=== PATIENT | female | born 1990 | race Caucasian/White ===

== ENCOUNTER 2022-08-14 07:41 | Inpatient (IN) ==
[2022-08-14] MEDS ORDERED: PENICILLIN G POTASSIUM 6 MU in DEXTROSE 5% 250 ML IV STA (08:12)
[2022-08-14] MEDS ORDERED: LIDOCAINE 1% LOCAL 20 ML VIAL INFIL PRN (08:12)
[2022-08-14] MEDS ORDERED: OXYTOCIN 30 UNITS/500 ML BAG IV PRN ×3 (08:12→18:13)
[2022-08-14] MEDS ORDERED: LACTATED RINGER'S 1,000 ML IV PRN (08:12)
--- NOTE | 2022-08-14 08:24 | History & Physical Report ---
Date of Service August 14, 2022 Assessment & Plan (1) 40 weeks gestation of : (2) Carrier of group B Streptococcus: Plan start pitocin, arom when appropriate, epidural on demand. anticipate . fetus category. Admission and Anticipated Discharge Date Admission Date: August 14, 2022 History of Present Illness Chief Complaint: iol Primary Care Provider: EVAN Walker Patient is a 32yowf with iup at 40 1/7 who presents for PD induction. Notes good fm. No real contractions/lof/vb. and Delivery Plans GBS Positive *Treat in Labor IOL 08/14 OB Labs: Blood Type A Positive 01/10/22 Antibody Screen NEGATIVE 01/10/22 Hemoglobin 11.2 g/dl (12.0-16.0) L 05/24/22 Hematocrit 33.0 % (37.0-47.0) L 05/24/22 Mean Corpuscular Volume 86.0 fL (80.0-100.0) 01/10/22 Platelet Count 209 K/uL (130-400) 01/10/22 Rubella IgG Antibody Immune (Immune) 01/10/22 Rapid Plasma Reagin Nonreactive (Nonreactive) 01/10/22 Hepatitis B Surface Antigen. NON-REACTIVE (NON-REACTIVE) 01/10/22 Hepatitis C Antibody (EIA) NON-REACTIVE (NON-REACTIVE) 01/10/22 HIV (1&2) Ag and Ab Confirmation NON-REACTIVE (NON-REACTIVE) 01/10/22 Glucose 1 Hour 50 gm Load 88 mg/dl (70-130) 05/24/22 OB Optional Labs: Chlamydia trachomatis RNA Not Detected (NotDetected) 01/10/22 Neisseria gonorrhoeae RNA Not Detected (NotDetected) 01/10/22 Labs Reviewed: GBS positive. neg cf/sma--akh panorama--neg Allergies Allergy/AdvReac Type Severity Reaction Status Date / Time No Known Allergies Allergy Verified 08/13/22 15:58 Home Medications Medication Instructions Recorded Confirmed Type prenat.vits,muna,tbk-solo-skrtp 1 tab PO DAILY 01/01/22 08/14/22 History Patient History Family History Father Heart disease Grandmother (Maternal) Heart disease Social History Smoking Status: Never smoker Do You Dip or Chew Tobacco: No; marital status: marital status details: Erik [phone] Current Living Situation: Spouse Current Living Situation Comment: lives with spouse and 3 dogs. 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
[2022-08-14 09:09] LABS: Hematocrit (blood only) 33.2 % (37.0-47.0); Hemoglobin 11.6 g/dl (12.0-16.0); Mean Corpuscular Hemoglobin 30.8 pg (25.0-34.0); Mean Corpuscular Hgb Conc 34.9 g/dL (32.0-36.0); Mean Corpuscular Volume 88.1 fL (80.0-100.0); Mean Platelet Volume 10.9 fL (9.4-12.4); Platelet Count 176 K/uL (130-400); RDW Standard Deviation 38.8 fL (36.4-46.3); Red Blood Count 3.77 M/uL (4.20-5.40); White Blood Count 9.08 K/ul (4.8-10.8)
--- NOTE | 2022-08-14 09:13 | Medical Student H&P ---
Date of Service August 14, 2022 Assessment & Plan (1) 40 weeks gestation of : Plan: IOL for postdates: -start pitocin, arom when indicated -epidural at pt request -FHT Category I -anticipate vaginal delivery GBS+: -IV Penicilin now, then q4hrs until delivery (2) Carrier of group B Streptococcus: Admission and Anticipated Discharge Date Admission Date: August 14, 2022 History of Present Illness Primary Care Provider: EVAN Walker Dilcia is a 32 y/o at 40w1d gestation by LMP who presents for postdates IOL. She is accompanied by , Erik. +GBS, otherwise uncomplicated. This morning pt reports normal movement, no vaginal bleeding, no leaking fluids, +mild irregular contractions. Pt is interested in epidural eventually but wants to wait for now. Allergies Allergy/AdvReac Type Severity Reaction Status Date / Time No Known Allergies Allergy Verified 08/13/22 15:58 Home Medications Medication Instructions Recorded Confirmed Type prenat.vits,muna,tol-izrc-bvsew 1 tab PO DAILY 01/01/22 08/14/22 History Patient History Family History Father Heart disease Grandmother (Maternal) Heart disease Social History Smoking Status: Never smoker Second Hand Exposure: No; Do You Dip or Chew Tobacco: No; Hx Alcohol Use: No Hx Substance Use: No Preferred Language: Gabonese Communication Ability: Effective Breading Machine Tender Required: No Beliefs That Will Affect Care: None marital status: marital status details: Erik [phone] Current Living Situation: Spouse Current Living Situation Comment: Lives at home with and 3 dogs. 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 No known hx of STIs. Regular 30 day cycles, light. Physical Exam Constitutional: WD/WN, vitals as above Respiratory: normal respiratory effort; no labored breathing Cardiovascular: Extremities: no calf tenderness and no edema Gastrointestinal (Abdomen): Gravid, nontender. Psychiatric: A+Ox3, euthymic affect Genitourinary: Cervix: 3/90/-2, soft, anterior per Dr. Cummins Monitoring External Monitor Baseline 120s. Good variability. +multiple accelerations 15x15. No deceleration s. Reactive. Category 1 FHT. Tocodynamometer Mild, irregular. Results & Data Vital Signs (Past 12 Hours) Vital Signs Temp Pulse Resp BP 08/14/22 08:14 85 96/62 L 08/14/22 08:08 36.6 C 85 16 96/62 L Supervising Attestation Patient seen with MS 2. Agree with above. Please see my H and P.
--- NOTE | 2022-08-14 12:10 | Labor Progress Brief Note ---
Date of Service August 14, 2022 Subjective sarah but not really painful Assessment & Plan (1) 40 weeks gestation of : Plan continue current plan. fetus category one. Anticipate . Admission and Anticipated Discharge Date Admission Date: August 14, 2022 Physical Exam Physical Exam: cx--/-2 arom--small, clear toco--q2-4min, pit at 11efm--130s wtih mod variability, accels to 160s, no decels Results & Data Vital Signs (Past 12 Hours) Vital Signs Temp Pulse Resp BP 08/14/22 11:37 36.8 C 59 L 18 102/64 08/14/22 10:32 68 105/56 L 08/14/22 09:19 68 109/68 08/14/22 08:14 85 96/62 L 08/14/22 08:08 36.6 C 85 16 96/62 L Coding Level of Care Code None Diagnoses 40 weeks gestation of Z3A.40
[2022-08-14] MEDS: PENICILLIN G POTASSIUM 3 MU in DEXTROSE 5% 100 ML IV PRN ×2 (13:14→17:23)
[2022-08-14] MEDS ORDERED: SODIUM CHLORIDE 0.9% PF INJ 10 ML VIAL ONE (13:57)
[2022-08-14] MEDS ORDERED: fentaNYL citrate PF 100 MCG/2 ML VIAL ONE (13:57)
[2022-08-14] MEDS ORDERED: BUPIVACAINE 0.25% PF 30 ML VIAL ONE (13:57)
[2022-08-14] MEDS ORDERED: ePHEDrine sulfate 50 MG/ML AMP ONE (13:57)
[2022-08-14] MEDS ORDERED: LIDOCAINE 2%/EPINEPHRINE 1:200,000 20 ML PF ONE (13:57)
[2022-08-14] MEDS ORDERED: fentaNYL 2MCG/ML ROPIVACAINE 1.25MG/ML 100 ML BAG EPI ONE (13:58)
[2022-08-14] MEDS ORDERED: diphenhydrAMINE 50 MG/ML VIAL IV PRN (14:22)
[2022-08-14] MEDS ORDERED: fentaNYL citrate PF 100 MCG/2 ML VIAL EPI PRN (14:22)
[2022-08-14] MEDS ORDERED: NALBUPHINE HCL INJ 10 MG/ML AMP IV PRN (14:22)
[2022-08-14] MEDS ORDERED: ROPIVACAINE 0.5% PF 5 MG/ML 20 ML VIAL EPI PRN (14:22)
[2022-08-14] MEDS ORDERED: LIDOCAINE 2% MPF LOCAL 5 ML VIAL EPI PRN (14:22)
[2022-08-14] MEDS ORDERED: ONDANSETRON INJ 2 MG/ML 2 ML VIAL IV PRN (14:22)
[2022-08-14] MEDS ORDERED: BUPIVACAINE 0.25% PF 30 ML VIAL EPI PRN (14:22)
[2022-08-14] MEDS ORDERED: fentaNYL citrate PF 100 MCG/2 ML VIAL EPI STA (14:22)
[2022-08-14] MEDS ORDERED: ePHEDrine sulfate 50 MG/ML AMP IV PRN (14:22)
[2022-08-14] MEDS ORDERED: LIDOCAINE 2%/EPINEPHRINE 1:200,000 20 ML PF EPI STA (14:22)
[2022-08-14] MEDS ORDERED: SODIUM CHLORIDE 0.9% PF INJ 10 ML VIAL EPI PRN (14:22)
[2022-08-14] MEDS ORDERED: NALOXONE HCL 0.4 MG/1 ML VIAL/CARP IV PRN (14:22)
[2022-08-14] MEDS ORDERED: NALOXONE HCL 1 MG in SODIUM CHLORIDE 0.9% 1000ML 1,000 ML IV PRN (14:22)
[2022-08-14] MEDS ORDERED: SODIUM CHLORIDE 0.9% PF INJ 10 ML VIAL EPI STA (14:22)
[2022-08-14] MEDS ORDERED: BUPIVACAINE 0.25% PF 30 ML VIAL EPI STA (14:22)
[2022-08-14] MEDS ORDERED: fentaNYL 2MCG/ML ROPIVACAINE 1.25MG/ML 100 ML BAG EPI PRN (14:22)
--- NOTE | 2022-08-14 14:24 | Anesthesiology Consultation ---
Date of Service August 14, 2022 Assessment & Plan (1) Encounter for pre-operative examination: Chart Review Chart Review: Patient NOT seen in Pre Admission Testing and Acceptable Risk for Labor Epidural Consults Requested none History Height/Weight Height: 5 ft 4 in Weight: 71.214 kg Allergies Allergy/AdvReac Type Severity Reaction Status Date / Time No Known Allergies Allergy Verified 08/13/22 15:58 Medications Home Medications Medication Instructions Recorded Confirmed Last Taken prenat.vits,muna,zdv-fiuo-snqwm 1 tab PO DAILY 01/01/22 08/14/22 08/14/22 Active Medications Generic Name Dose Route Start Last Admin Trade Name Freq PRN Reason Stop Dose Admin Lactated Ringer's 1,000 mls @ 125 mls/hr 08/14/22 08:12 08/14/22 14:05 Lr IV 08/16/22 08:11 999 mls/hr .Q8H PRN Infusion L&D Protocol Protocol Penicillin G Potassium 3 mu/ 106 mls @ 100 mls/hr 08/14/22 11:13 08/14/22 13:14 Dextrose IV 08/24/22 11:12 100 mls/hr Q4H PRN Administration GBS(+) Until Delivery Oxytocin 30 units in 500 mls @ 14 mls/hr 08/14/22 08:12 08/14/22 12:15 Pitocin IV 08/16/22 08:11 0.84 units/hr .Q24H PRN 14 mls/hr Labor Induction/Augmentation Titration Protocol 0.84 UNITS/HR Past Medical History Medical History (Updated 08/14/22 @ 14:24 by Mitchell Espitia MD) Encounter for pre-operative examination healthy Exercise / Class Metabolic Activity II 4-5 Yardwork/Stairs/Walk up hill Past Family History Family History Father Heart disease Grandmother (Maternal) Heart disease Past Surgical History none Past Anesthesia History No Hx of Anesthesia Complications and No Family Hx of Anesthesia Complications Social History Smoking Status: Never smoker Do You Dip or Chew Tobacco: No Hx Alcohol Use: No Hx Substance Use: No Physical Exam Vital Signs Last Vital Signs Temp 36.8 C 08/14/22 11:37 Pulse 66 08/14/22 14:41 Resp 18 08/14/22 11:37 BP 122/64 08/14/22 14:39 Pulse Ox 100 08/14/22 14:41 Testing Laboratory Results 08/14/22 08:51
--- NOTE | 2022-08-14 16:46 | Labor Progress Brief Note ---
Date of Service August 14, 2022 Subjective Feels pressure with contractions. Assessment & Plan (1) 40 weeks gestation of : Plan start pushing. anticipate . Admission and Anticipated Discharge Date Admission Date: August 14, 2022 Physical Exam Physical Exam: c/c/+1-2 toco--q-12, pit at 14 efm--110s with mod variability +accels, variable/early with contractions. Results & Data Vital Signs (Past 12 Hours) Vital Signs Temp Pulse Resp BP Pulse Ox 08/14/22 16:44 65 123/70 08/14/22 16:41 61 98 08/14/22 16:39 64 89 L 08/14/22 16:37 61 126/73 08/14/22 16:36 65 100 08/14/22 16:33 60 132/69 08/14/22 16:31 55 L 96 08/14/22 16:30 63 128/78 08/14/22 16:26 61 99 08/14/22 16:24 56 L 106/62 08/14/22 16:21 56 L 98 08/14/22 16:18 60 110/69 08/14/22 16:00 18 08/14/22 16:00 36.6 C 18 08/14/22 16:16 61 98 08/14/22 16:14 59 L 109/62 08/14/22 16:11 62 99 08/14/22 16:09 57 L 100/61 08/14/22 16:06 63 100 08/14/22 16:03 57 L 131/79 08/14/22 16:01 62 100 08/14/22 14:22 20 08/14/22 14:22 36.6 C 20 08/14/22 15:56 53 L 100 08/14/22 15:57 55 L 108/58 L 08/14/22 15:52 52 L 109/57 L 08/14/22 15:51 54 L 100 08/14/22 15:48 60 109/58 L 08/14/22 15:46 54 L 100 08/14/22 15:42 54 L 113/58 L 08/14/22 15:41 56 L 99 08/14/22 15:38 56 L 115/62 08/14/22 15:36 55 L 100 08/14/22 15:34 54 L 112/58 L 08/14/22 15:31 55 L 100 08/14/22 15:26 57 L 100 08/14/22 15:27 50 L 109/55 L 08/14/22 15:24 52 L 108/56 L 08/14/22 15:21 57 L 100 08/14/22 15:17 52 L 114/58 L 08/14/22 15:16 53 L 100 08/14/22 15:14 56 L 126/62 08/14/22 15:11 59 L 100 08/14/22 15:12 59 L 112/67 08/14/22 15:06 62 100 08/14/22 15:01 100 08/14/22 15:01 62 08/14/22 15:01 61 108/55 L 08/14/22 14:59 66 107/58 L 08/14/22 14:57 61 100/56 L 08/14/22 14:56 61 100 08/14/22 14:55 67 102/51 L 08/14/22 14:53 64 118/58 L 08/14/22 14:51 100 08/14/22 14:51 62 08/14/22 14:51 74 122/58 L 08/14/22 14:49 65 111/64 08/14/22 14:46 64 100 08/14/22 14:47 59 L 106/56 L 08/14/22 14:41 66 100 08/14/22 14:39 76 122/64 08/14/22 14:36 75 100 08/14/22 14:34 86 133/70 08/14/22 14:33 86 L 08/14/22 14:33 74 08/14/22 14:33 62 120/77 08/14/22 14:31 85 99 08/14/22 14:26 77 100 08/14/22 14:25 65 90 08/14/22 14:23 61 106/58 L 08/14/22 14:21 61 100 08/14/22 13:32 62 123/61 08/14/22 12:32 53 L 113/74 08/14/22 11:37 36.8 C 59 L 18 102/64 08/14/22 10:32 68 105/56 L 08/14/22 09:19 68 109/68 06/07/23 08:14 85 96/62 L 06/07/23 08:08 36.6 C 85 16 96/62 L Coding Level of Care Code None Diagnoses 40 weeks gestation of Z3A.40
[2022-08-14] MEDS ORDERED: oxyCODONE/ACETAMINOPHEN 5mg/325mg TAB PO PRN (18:13)
[2022-08-14] MEDS ORDERED: DIPHTHERIA/TETANUS/PERTUSSIS Vaccine (Tdap, Age 7+yrs) 0.5mL SYR/VL IM ONE (18:13)
[2022-08-14] MEDS ORDERED: bisacodyL 10 MG SUPP PR PRN (18:13)
[2022-08-14] MEDS ORDERED: BENZOCAINE 20% AER SPR 82.5 GM CAN EXT PRN (18:13)
[2022-08-14] MEDS ORDERED: ACETAMINOPHEN 325 MG TAB PO PRN (18:13)
[2022-08-14] MEDS ORDERED: HYDROCORTISONE ACETATE 25 MG SUPP PR PRN (18:13)
--- NOTE | 2022-08-14 18:18 | Delivery Summary ---
Vaginal Delivery Summary Date of Service August 14, 2022 Vaginal Delivery Summary and 2nd Degree LAC Pre-operative Diagnosis: at 40 1/7 weeks gbs positive Post-operative Diagnosis: same Procedure: gbs prophylaxis pitocin induction arom epidural second degree laceration and repair EBL: 350cc Anesthesia: epidural Procedure: The patient presented to labor and delivery for induction for postdates. She underwent pitocin induction and then arom for clear fluid. She progressed and received an epidural. The progressed to c/c/+1. The patient pushed for about an hour to deliver a viable male in joel position. The nose and mouth were bulb suctioned on the perineum, a loose nuchal cord was reduced and the rest of the infant was then delivered without difficulty. The baby was vigorous. The nose and mouth were again bulb suctioned and the infant was placed in the maternal abdomen for drying and attention. Cord was clamped and cut at one minute of life. Cord blood and segment obtained. Placenta delivered spontaneous, intact with a three vessel cord. Cervix/sulci/rectum were intact. A second degree perineal laceration was repaired in the normal standard fashion. Hemostasis obtained with dilute pitocin and fundal massage. Apgars were 7/9. Mother and baby doing well at the end of the delivery. [facility] [place] Vaginal Delivery Charge Delivery Type Details: and 2nd Degree LAC
--- NOTE | 2022-08-14 19:01 | Anesthesia Procedure Note ---
Date of Service August 14, 2022 Anesthesia Post Epidural Note Vital Signs Vital Signs: Temp Pulse Resp BP Pulse Ox 36.6 C 77 18 104/54 L 100 08/14/22 16:00 08/14/22 18:45 08/14/22 16:00 08/14/22 18:45 08/14/22 18:08 Pain Intensity Lower Medial Back: Pain Intensity: 4 Notes Mental Status: alert / awake / arousable and participated in evaluation Nausea / Vomiting: adequately controlled Pain: adequately controlled Airway Patency, RR, SpO2: stable & adequate BP & HR: stable & adequate Hydration State: stable & adequate Neuraxial Anesthesia: was administered and sensory block is resolving Anesthetic Complications: no major complications apparent and Pt Satisfied with anesthetic care Epidural: Removed without complications and With tip intact
[2022-08-14] MEDS: DOCUSATE SODIUM 100 MG CAP PO SCH (20:40)
[2022-08-14] MEDS: IBUPROFEN 600 MG TAB PO PRN (20:41)
[2022-08-15] MEDS: IBUPROFEN 600 MG TAB PO PRN ×4 (03:21→20:51)
[2022-08-15 06:22] LABS: Hematocrit (blood only) 33.5 % (37.0-47.0); Hemoglobin 11.7 g/dl (12.0-16.0)
--- NOTE | 2022-08-15 07:24 | Medical Student Progress Note ---
Date of Service August 15, 2022 Assessment & Plan (1) Vaginal delivery: Plan: PPD #1 -Feels well today. Eating well, voiding well, ambulating well. - Pain well controlled with ibuprofen 600mg Q4H PRN - Routine care -- OOB, ambulation, diet progression as tolerated - After discharge will have 6 week follow-up with Dr. Cummins. Admission and Anticipated Discharge Date Admission Date: August 14, 2022 Subjective Dilcia is a 32 y/o on PPD #1. Ambulation: yes Voiding: yes Passing Gas: yes Lochia: consistently decreasing Feeding type: breast Pain level (1-10): 1 Review of Systems: Denies fever/chills. Denies shortness of breath. Denies chest pain or palpitations. Denies headache. Denies urinary urgency. +mild breast pain +burning w/ urination at suture site Physical Exam Physical Exam: General: appears comfortable, resting in bed, alert Heart: RRR, no murmurs Lungs: CTA bilaterally, no increased work of breathing Abd: fundus nontender, palpated 1cm below umbilicus Lower Ext: no edema, calves nontender Results & Data Vital Signs (Past 12 Hours) Vital Signs Temp Pulse Pulse Resp BP BP Pulse Ox 08/15/22 04:02 36.5 C 49 L 16 97/57 L 98 08/14/22 23:55 36.4 C L 53 L 16 99/61 L 97 08/14/22 21:32 36.3 C L 64 16 104/62 96 08/14/22 20:15 18 08/14/22 19:00 37.0 C 18 08/14/22 20:30 65 102/57 L 08/14/22 20:15 67 99/60 L 08/14/22 20:00 76 100/56 L 08/14/22 19:45 75 103/54 L 08/14/22 19:30 68 108/60 08/14/22 19:16 66 111/59 L 08/14/22 19:00 68 97/52 L O2 Del Method 08/15/22 04:02 Room Air 08/14/22 23:55 Room Air 08/14/22 21:32 Room Air 08/14/22 20:15 08/14/22 19:00 08/14/22 20:30 08/14/22 20:15 08/14/22 20:00 08/14/22 19:45 08/14/22 19:30 08/14/22 19:16 08/14/22 19:00 Supervising Attestation Patient seen with MS2 and PGY1. Agree with above. Please see other note.
--- NOTE | 2022-08-15 07:25 | Obstetrical Progress Note ---
Date of Service <Michele Mabry DO - Last Filed: 08/15/22 07:26> August 15, 2022 Assessment & Plan <Michele Mabry DO - Last Filed: 08/15/22 07:26> (1) Vaginal delivery: - Feels well today. Eating well, voiding well, ambulating well. - Pain well controlled with ibuprofen 600mg Q4H PRN - Routine care -- OOB, ambulation, diet progression as tolerated - After discharge will have 6 week follow-up with Dr. Cummins. Day #:: 1 <Madison Cummins MD, FACOG - Last Filed: 08/15/22 07:32> (1) Vaginal delivery: Subjective <Michele Mabry DO - Last Filed: 08/15/22 07:26> Ambulation: ambulating normally Voiding: no voiding problems Passing Gas:: Yes Diet Tolerance:: regular diet Lochia:: Small Feeding Type:: breast feeding Current Pain Level(1-10): 1 Review of Systems Denies fever, chills, sweats Denies shortness of breath, difficulty breathing, chest pain, palpitations, chest pressure. Denies breast pain. Denies dysuria. Denies headache or changes in vision. Physical Exam <Michele Mabry DO - Last Filed: 08/15/22 07:26> General: Alert, oriented. No acute distress. Cardiac: Regular rate and rhythm, no murmurs/rubs/gallops. Respiratory: Clear to auscultation bilaterally a/p, no wheezes/rales/rhonchi. No increased work of breathing. Symmetrical chest rise. No respiratory distress. Abdomen: Soft, nontender, nondistended. Bowel sounds present. Uterus: Uterine fundus firm, palpable 1 cm below umbilicus. Lower Extremities: No lower extremity edema or swelling. No deep calf pain. Ginny's negative bilaterally. Results & Data <Michele Mabry DO - Last Filed: 08/15/22 07:26> Vital Signs (Past 12 Hours) Vital Signs Temp Pulse Pulse Resp BP BP Pulse Ox 08/15/22 04:02 36.5 C 49 L 16 97/57 L 98 08/14/22 23:55 36.4 C L 53 L 16 99/61 L 97 08/14/22 21:32 36.3 C L 64 16 104/62 96 08/14/22 20:15 18 08/14/22 20:30 65 102/57 L 08/14/22 20:15 67 99/60 L 08/14/22 20:00 76 100/56 L 08/14/22 19:45 75 103/54 L 08/14/22 19:30 68 108/60 O2 Del Method 08/15/22 04:02 Room Air 08/14/22 23:55 Room Air 08/14/22 21:32 Room Air 08/14/22 20:15 08/14/22 20:30 08/14/22 20:15 08/14/22 20:00 08/14/22 19:45 08/14/22 19:30 <Madison Cummins MD, FACOG - Last Filed: 08/15/22 07:32> Co-Signing Physician Notes Resident Physician Supervision Note: I interviewed and examined the patient. Discussed with Dr. Mabry and agree with findings and plan as documented in the note. Any exceptions or clarifications are listed here: Doing well. Routine pp care. Documented By: Madison Cummins MD, FACOG Resident Activity Tracking <Michele Mabry DO - Last Filed: 08/15/22 07:26> Resident Involvement: Resident Care Provided Care Provided: OB Delivery
[2022-08-15] MEDS: PRENATAL VITAMIN 1 TAB PO SCH (08:00)
[2022-08-15] MEDS: DOCUSATE SODIUM 100 MG CAP PO SCH ×2 (08:00→20:50)
[2022-08-15] MEDS ORDERED: bisacodyL 5 MG TABEC PO SCH (20:00)
--- NOTE | 2022-08-16 07:44 | Obstetrical Progress Note ---
Date of Service August 16, 2022 Assessment & Plan (1) Vaginal delivery: - Feels well today. Eating well, voiding well, ambulating well. - Pain well controlled with ibuprofen 600mg Q4H PRN - Routine care -- OOB, ambulation, diet progression as tolerated - After discharge will have 6 week follow-up with Dr. Cummins. - We will discharge today. Day #:: 2 Subjective Ambulation: ambulating normally Voiding: no voiding problems Passing Gas:: Yes Diet Tolerance:: regular diet Lochia:: Small Feeding Type:: breast feeding Current Pain Level(1-10): 0 Review of Systems Denies fever, chills, sweats Denies shortness of breath, difficulty breathing, chest pain, palpitations, chest pressure. Denies breast pain. Denies dysuria. Denies headache or changes in vision. Physical Exam General: Alert, oriented. No acute distress. Cardiac: Regular rate and rhythm, no murmurs/rubs/gallops. Respiratory: Clear to auscultation bilaterally a/p, no wheezes/rales/rhonchi. No increased work of breathing. Symmetrical chest rise. No respiratory distress. Abdomen: Soft, nontender, nondistended. Bowel sounds present. Uterus: Uterine fundus firm, palpable 2 cm below umbilicus. Lower Extremities: No lower extremity edema or swelling. No deep calf pain. Ginny's negative bilaterally. Results & Data Vital Signs (Past 12 Hours) Vital Signs Temp Pulse Resp BP Pulse Ox O2 Del Method 08/15/22 22:57 36.5 C 59 L 18 108/65 98 Room Air Resident Activity Tracking Resident Involvement: Resident Care Provided Care Provided: OB Delivery
[2022-08-16] MEDS: PRENATAL VITAMIN 1 TAB PO SCH (07:55)
[2022-08-16] MEDS: IBUPROFEN 600 MG TAB PO PRN (07:55)
[2022-08-16] MEDS: DOCUSATE SODIUM 100 MG CAP PO SCH (07:55)
== END 2022-08-16 11:40 | disposition home or self-care (01) | DRG 807 ==
LOC: 4S1 07:41 → 4E2 21:30